=== PATIENT | female | born 1985 | race Caucasian/White ===

== ENCOUNTER 2017-06-18 15:34 | Emergency (ER) | payer BC ==
[2017-06-18 16:07] VITALS: BP 117/76
[2017-06-18] MEDS ORDERED: Ibuprofen 400 MG Tab PO ONE (16:20)
[2017-06-18] MEDS ORDERED: Diphtheria,Pertussis(Acell),Tetanus Vaccine 0.5 ML Syringe IM ONE (16:21)
--- NOTE | 2017-06-18 16:24 | EDM.PDOC ---
ED HPI GENERAL MEDICAL PROBLEM - General Chief Complaint: Upper Extremity Injury/Pain Stated Complaint: RT ARM HURTS Time Seen by Provider: 06/18/17 16:02 Source of Information: Reports: Patient History Limitations: Reports: No Limitations - History of Present Illness INITIAL COMMENTS - FREE TEXT/NARRATIVE: HISTORY AND PHYSICAL: History of present illness: [31-year-old female presents to the emergency department after awakening this morning with a area of swelling on her right forearm with mild bruising in the center of the swollen area. Patient did not suffer any trauma. She is able to use her elbow and wrist normally. She has no fevers chills sweats or shaking chills. She was asymptomatic no findings last night. Patient thinks she may have been bitten by a spider.] Review of systems: As per history of present illness and below otherwise all systems reviewed and negative. Past medical history: As per history of present illness and as reviewed below otherwise noncontributory. Surgical history: As per history of present illness and as reviewed below otherwise noncontributory. Social history: No reported history of drug or alcohol abuse. Family history: As per history of present illness and as reviewed below otherwise noncontributory. Physical exam: Well-appearing patient distress mild soft tissue swelling right forearm in local area with mild ecchymosis centrally consistent with suspected brown recluse spider bite. No fluctuance or crepitus. No erythema. Soft compartments normal use of wrist and elbow. HEENT: Atraumatic, normocephalic, pupils reactive, negative for conjunctival pallor or scleral icterus, mucous membranes moist, throat clear, neck supple, nontender, trachea midline. Lungs: Clear to auscultation, breath sounds equal bilaterally, chest nontender. Heart: S1S2, regular, negative for clicks, rubs, or JVD. Abdomen: Soft, nondistended, nontender. Negative for masses or hepatosplenomegaly. Negative for costovertebral tenderness. Pelvis: Stable nontender. Genitourinary: Deferred. Rectal: Deferred. Extremities: Atraumatic, negative for cords or calf pain. Neurovascular unremarkable. Neuro: Awake, alert, oriented. Cranial nerves grossly unremarkable. Cerebellum unremarkable. Motor and sensory unremarkable throughout. Exam nonfocal. Diagnostics: [] Therapeutics: [] Impression: [Spider bite Tetanus administered at this visit] Plan: [Signs and symptoms consistent with suspected brown recluse spider bite with local reaction and mild ecchymosis. Soft compartments. No evidence of cellulitis. Tetanus updated. No further workup or treatment indicated. Patient aware of potentially expect as far as evolution of skin lesion. She will take Motrin Tylenol as needed for discomfort and follow-up with her doctor. Patient agrees outpatient follow-up and strict return precautions given] Definitive disposition and diagnosis as appropriate pending reevaluation and review of above. right forearm Pain Score (Numeric/FACES): 3 - Related Data Allergies Allergy/AdvReac Type Severity Reaction Status Date / Time No Known Allergies Allergy Verified 06/18/17 16:03 Home Meds: Home Meds Neomycin León/Bacitrac Zn/Poly [Antibiotic Ointment] 06/18/17 [History] Past Medical History - Past Health History Medical/Surgical History: Denies Medical/Surgical History [employer] History: Reports: - Infectious Disease History Infectious Disease History: Reports: Chicken Pox - Past Surgical History Female Surgical History: Reports: D&C Social & Family History - Family History Family Medical History: Noncontributory - Tobacco Use Smoking Status *Q: Current Some Day Smoker Years of Tobacco use: 5 Packs/Tins Daily: 1 - Caffeine Use Caffeine Use: Reports: None - Recreational Drug Use Recreational Drug Use: No Review of Systems - Review of Systems Review Of Systems: See Below (History of present illness) ED EXAM, GENERAL - Physical Exam Exam: See Below (History of present illness) Course - Vital Signs Last Recorded V/S: Last Vital Signs Temp 37.2 C 06/18/17 16:04 Pulse 89 06/18/17 16:04 Resp 18 06/18/17 16:04 BP 117/76 06/18/17 16:04 Pulse Ox 98 06/18/17 16:04 - Orders/Labs/Meds Meds: Medications Discontinued Medications Generic Name Dose Route Start Last Admin Trade Name Freq PRN Reason Stop Dose Admin Diphtheria/Tetanus/Acell Pertussis 0.5 ml 06/18/17 16:21 06/18/17 16:30 Adacel IM 06/18/17 16:22 0.5 ml .ONCE ONE Administration Ibuprofen 400 mg 06/18/17 16:20 06/18/17 16:31 Motrin PO 06/18/17 16:21 400 mg ONETIME ONE Administration Departure - Departure Time of Disposition: 16:22 Disposition: Home, Self-Care 01 Condition: Good Clinical Impression: Spider bite, Tetanus-diphtheria vaccination administered at current visit - Discharge Information Instructions: Spider Bite, [id number], VIS, Tetanus, Diphtheria, and Pertussis (Tdap) - CDC Referrals: PCP,None [Primary Care Provider] - Forms: ED Department Discharge Additional Instructions: It appears that you have a spider bite area your tetanus has been updated. This also includes pertussis or whooping cough coverage. Take ibuprofen 600 mg every 6 hours as needed for soreness. Apply an ice pack as needed as well. He can also take Tylenol if necessary. The aware that that mildly black and blue area may become darker black and blue and is typical for her to take weeks to resolve. Follow-up with your and return immediately for drainage of pus or any evolving signs of infection especially fevers in the setting of worsening skin lesion.
[2017-06-18] MEDS ORDERED: cefTRIAXone 2,000 MG, Lidocaine 1% 2.1 ML IM ONE ×2 (16:29)
== END 2017-06-18 16:37 | disposition home or self-care (01) ==
LOC: MW.ED 15:34
DX: T63.441A Toxic effect of venom of bees, accidental (unintentional), initial encounter (principal); Z23 Encounter for immunization; F17.210 Nicotine dependence, cigarettes, uncomplicated
CPT/HCPCS: 90471; 90715; 99282; A9270

== ENCOUNTER 2017-10-05 10:13 | Observation (INO) | payer BC ==
[2017-10-05] MEDS ORDERED: Ondansetron 4 MG/2 ML SDV IVPUSH ONE (10:35)
[2017-10-05] MEDS ORDERED: Sodium Chloride 0.9% 1,000 ML IV ONE ×3 (10:35→14:50)
--- NOTE | 2017-10-05 10:40 | EDM.PDOC ---
ED HPI GENERAL MEDICAL PROBLEM - General Chief Complaint: [employer] Problem Stated Complaint: fever Time Seen by Provider: 10/05/17 10:36 Source of Information: Reports: Patient History Limitations: Reports: No Limitations - History of Present Illness INITIAL COMMENTS - FREE TEXT/NARRATIVE: HISTORY AND PHYSICAL: History of present illness: Shouldn't is a 32-year-old female who presents to the emergency room today with complaints of right lower quadrant pain. Patient is approximately 9 weeks with her last menstrual period being August 03, 2017. She has had a confirmed IUP by a [employer] in Dr. Pallavi Lanier. Patient reports that last night she started having body aches, fever, nausea, vomiting and mild right lower quadrant pain. This morning she started to feel low abdominal cramping with more intense right lower quadrant pain. States she had a normal bowel movement last night, denies constipation. Denies any chest pain, shortness of breath, change in vision, headache. 2, para 0 - had a miscarriage November 2015 at 6 weeks gestation. No recent sexual activity Our previous hospital records show she is O-Negative Review of systems: As per history of present illness and below otherwise all systems reviewed and negative. Past medical history: As per history of present illness and as reviewed below otherwise noncontributory. Surgical history: As per history of present illness and as reviewed below otherwise noncontributory. Social history: No reported history of drug or alcohol abuse. Family history: As per history of present illness and as reviewed below otherwise noncontributory. Physical exam: Gen.: Well-developed and well-nourished 32-year-old female. Appears nontoxic. Alert and oriented. HEENT: Atraumatic, normocephalic, pupils reactive, negative for conjunctival pallor or scleral icterus, mucous membranes moist, throat clear, neck supple, nontender, trachea midline. Lungs: Clear to auscultation, breath sounds equal bilaterally, chest nontender. Heart: S1S2, regular rate and rhythm Abdomen: Soft, nondistended, right lower quadrant tenderness -no rebound tenderness. Negative for masses or hepatosplenomegaly. Negative for costovertebral tenderness. Pelvis: Stable nontender. Genitourinary: Deferred. Rectal: Deferred. Extremities: Atraumatic, moves all extremities per self, negative for cords or calf pain. Neurovascular unremarkable. Neuro: Awake, alert, oriented. Cranial nerves II through XII unremarkable. Cerebellum unremarkable. Motor and sensory unremarkable throughout. Exam nonfocal. 1310- Dr. Padilla was consulted at this time. I did talk to him over the phone about this case at 1310, he reports that he will come in and see the patient. Patient is aware of this and is agreeable. Will continue to monitor. 1410- is here to evaluate the patient. Nursing staff assisted him with performing a pelvic exam. He reviewed the labs and to sound report prior to visiting with the patient. Dr. Padilla instructed the patient signs and symptoms to monitor for which would require her to come back. He wants her to be discharged to home and she may use Tylenol [id number] for pain management. He would like her to follow up with her primary [employer] in [place] or he would be happy to see her in his clinic next week. Strict pelvic rest. 1415- Dr. Coronado was consulted on this case for possible observation admission. He requested that the general surgeon be called. I went in to reevaluate the patient prior to calling the on-call surgeon. Inform the patient that we would like to keep her overnight to monitor her lab work and blood pressure/ temperature; she declined. She reports she feels comfortable going home after speaking with Dr. Padilla. We discussed the risks versus benefits. She still would like to return home and watch her symptoms there. 1430-discharge vitals are being done, blood pressure is 91/51. Went in to rediscuss admission with patient. She is agreeable to staying overnight. He still has right lower quadrant tenderness with palpation. Dr. Apple is involved in this case, assisting in getting patient admitted. 1510- Dr. Joyce here to see patient. In with patient at this time. Diagnostics: CBC, CMP, UA, quantitative hCG, AB/Rh, OB ultrasound/limited abdominal ultrasound Therapeutics: IV fluid, Zofran Impression: First trimester Threatened miscarriage Fever Plan: 1. Active Cliff and Dr. Christensen have agreed to accept this patient for overnight observation. Patient will be admitted to [facility] floor Definitive disposition and diagnosis as appropriate pending reevaluation and review of above. Duration: Hour(s): Location: Reports: Abdomen Quality: Reports: Ache, Other (Cramping) Associated Symptoms: Reports: Fever/Chills, Nausea/Vomiting, Other (Body aches) . Denies: Chest Pain, Cough, Headaches, Loss of Appetite right lower quad Pain Score (Numeric/FACES): 9 - Related Data Allergies Allergy/AdvReac Type Severity Reaction Status Date / Time No Known Allergies Allergy Verified 10/05/17 10:21 Home Meds: Home Meds Docosahexanoic Acid [ Dha] 200 mg PO DAILY 10/05/17 [History] Pyridoxine HCl [Vitamin B-6] 1 tab PO DAILY 10/05/17 [History] Past Medical History - Past Health History Medical/Surgical History: Denies Medical/Surgical History [employer] History: Reports: - Infectious Disease History Infectious Disease History: Reports: Chicken Pox - Past Surgical History GI Surgical History: Reports: Cholecystectomy Female Surgical History: Reports: D&C Social & Family History - Family History Family Medical History: Noncontributory - Tobacco Use Smoking Status *Q: Current Some Day Smoker Years of Tobacco use: 8 Packs/Tins Daily: 0.5 - Caffeine Use Caffeine Use: Reports: Coffee - Recreational Drug Use Recreational Drug Use: No ED ROS GENERAL - Review of Systems Review Of Systems: ROS reveals no pertinent complaints other than HPI. ED EXAM - Physical Exam Exam: See Below (See dictation) Course - Vital Signs Last Recorded V/S: Last Vital Signs Temp 37.1 C 10/06/17 08:00 Pulse 68 10/06/17 07:00 Resp 20 10/06/17 10:00 BP 115/64 10/06/17 10:00 Pulse Ox 97 10/06/17 10:00 - Orders/Labs/Meds Orders: Active Orders 24 hr Category Date Time Status Admission Diagnosis [ADT] Stat ADT 10/05/17 15:30 Ordered Admission Status [Patient Status] [ADT] Stat ADT 10/05/17 15:31 Active Notify Provider Consults [RC] ASDIRECTED Care 10/05/17 13:05 Active Notify Provider Consults [RC] ASDIRECTED Care 10/05/17 15:25 Active Consult to Physician [CONS] Stat Cons 10/05/17 13:04 Active Consult to Physician [CONS] Stat Cons 10/05/17 15:25 Active Abdomen Ltd [US] Stat Exams 10/05/17 10:35 Taken OB Transvaginal [US] Stat Exams 10/05/17 10:35 Taken CULTURE BLOOD [BC] Stat Lab 10/05/17 13:04 Received CULTURE BLOOD [BC] Stat Lab 10/05/17 13:16 Received Blood Culture x2 Reflex Set [OM.PC] Stat Oth 10/05/17 12:59 Ordered Medication Orders Acetaminophen (Tylenol) 650 mg PO Q4H PRN PRN Reason: Pain (Mild 1-3)/fever Last Admin: 10/05/17 18:14 Dose: 650 mg Sodium Chloride (Normal Saline) 1,000 mls @ 125 mls/hr IV ASDIRECTED JESS Last Admin: 10/06/17 02:38 Dose: 125 mls/hr Infusion: 10/06/17 02:15 Dose: 125 mls/hr Admin: 10/05/17 18:15 Dose: 125 mls/hr Piperacillin Sod/Tazobactam (Sod 3.375 gm/ Sodium Chloride) 50 mls @ 100 mls/ hr IV Q8H [facility] Last Admin: 10/06/17 07:47 Dose: 100 mls/hr Infusion: 10/06/17 00:36 Dose: 100 mls/hr Admin: 10/06/17 00:06 Dose: 100 mls/hr Ondansetron HCl (Zofran) 4 mg IVPUSH Q4H PRN PRN Reason: Nausea Oxycodone HCl (Oxycodone) 5 mg PO Q4H PRN PRN Reason: Pain Last Admin: 10/06/17 02:54 Dose: 5 mg Labs: Laboratory Tests 10/05/17 10/05/17 10/05/17 Range/Units 10:43 10:43 11:15 WBC 8.88 (4.0-11.0) K/uL RBC 4.74 (4.30-5.90) M/uL Hgb 14.9 (12.0-16.0) g/dL Hct 44.1 (36.0-46.0) % MCV 93.0 (80.0-98.0) fL MCH 31.4 (27.0-32.0) pg MCHC 33.8 (31.0-37.0) g/dL RDW Std Deviation 41.2 (28.0-62.0) fl RDW Coeff of Sandra 12 (11.0-15.0) % Plt Count 240 (150-400) K/uL MPV 10.00 (7.40-12.00) fL Neut % (Auto) 72.9 (48.0-80.0) % Lymph % (Auto) 17.6 (16.0-40.0) % Frontier % (Auto) 8.1 (0.0-15.0) % Eos % (Auto) 1.2 (0.0-7.0) % Baso % (Auto) 0.2 (0.0-1.5) % Neut # (Auto) 6.5 H (1.4-5.7) K/uL Lymph # (Auto) 1.6 (0.6-2.4) K/uL Frontier # (Auto) 0.7 (0.0-0.8) K/uL Eos # (Auto) 0.1 (0.0-0.7) K/uL Baso # (Auto) 0.0 (0.0-0.1) K/uL Nucleated RBC % 0.0 /100WBC Nucleated RBCs # 0 K/uL Lactate (0.20-2.00) mmol/L Sodium 138 (136-146) mmol/L Potassium 3.9 (3.5-5.1) mmol/L Chloride 106 (98-110) mmol/L Carbon Dioxide 22 (21-31) mmol/L BUN 12 (6.0-23.0) mg/dL Creatinine 0.6 (0.6-1.5) mg/dL Est Cr Clr Drug Dosing 112.77 mL/min Estimated GFR (MDRD) > 60.0 ml/min Glucose 74 (60-110) mg/dL Calcium 9.8 (8.8-10.8) mg/dL Total Bilirubin 0.8 (0.1-1.5) mg/dL AST 18 (5-40) IU/L ALT 19 (8-54) IU/L Alkaline Phosphatase 58 (40-150) Total Protein 7.2 (6.0-8.0) g/dL Albumin 4.2 (3.5-5.0) g/dL Globulin 3.0 (2.0-3.5) g/dL Albumin/Globulin Ratio 1.4 (1.3-2.8) HCG, Quant 264886.7 mIU/mL Urine Color YELLOW Urine Appearance CLEAR Urine pH 7.5 (5.0-8.0) Ur Specific [place] 1.010 (1.001-1.035) Urine Protein NEGATIVE (NEGATIVE) mg/dL Urine Glucose (UA) NEGATIVE (NEGATIVE) mg/dL Urine Ketones NEGATIVE (NEGATIVE) mg/dL Urine Occult Blood NEGATIVE (NEGATIVE) Urine Nitrite NEGATIVE (NEGATIVE) Urine Bilirubin NEGATIVE (NEGATIVE) Urine Urobilinogen 0.2 (<2.0) EU/dL Ur Leukocyte Esterase NEGATIVE (NEGATIVE) Urine RBC NONE SEEN (0-2/HPF) Urine WBC 1-3 (0-5/HPF) Ur Epithelial Cells FEW (NONE-FEW) Amorphous Sediment NOT SEEN (NEGATIVE) Urine Bacteria FEW (NEGATIVE) Urine Mucus NOT SEEN (NONE-MOD) 10/05/17 Range/Units 13:10 WBC (4.0-11.0) K/uL RBC (4.30-5.90) M/uL Hgb (12.0-16.0) g/dL Hct (36.0-46.0) % MCV (80.0-98.0) fL MCH (27.0-32.0) pg MCHC (31.0-37.0) g/dL RDW Std Deviation (28.0-62.0) fl RDW Coeff of Sandra (11.0-15.0) % Plt Count (150-400) K/uL MPV (7.40-12.00) fL Neut % (Auto) (48.0-80.0) % Lymph % (Auto) (16.0-40.0) % Frontier % (Auto) (0.0-15.0) % Eos % (Auto) (0.0-7.0) % Baso % (Auto) (0.0-1.5) % Neut # (Auto) (1.4-5.7) K/uL Lymph # (Auto) (0.6-2.4) K/uL Frontier # (Auto) (0.0-0.8) K/uL Eos # (Auto) (0.0-0.7) K/uL Baso # (Auto) (0.0-0.1) K/uL Nucleated RBC % /100WBC Nucleated RBCs # K/uL Lactate 0.7 (0.20-2.00) mmol/L Sodium (136-146) mmol/L Potassium (3.5-5.1) mmol/L Chloride (98-110) mmol/L Carbon Dioxide (21-31) mmol/L BUN (6.0-23.0) mg/dL Creatinine (0.6-1.5) mg/dL Est Cr Clr Drug Dosing mL/min Estimated GFR (MDRD) ml/min Glucose (60-110) mg/dL Calcium (8.8-10.8) mg/dL Total Bilirubin (0.1-1.5) mg/dL AST (5-40) IU/L ALT (8-54) IU/L Alkaline Phosphatase (40-150) Total Protein (6.0-8.0) g/dL Albumin (3.5-5.0) g/dL Globulin (2.0-3.5) g/dL Albumin/Globulin Ratio (1.3-2.8) HCG, Quant mIU/mL Urine Color Urine Appearance Urine pH (5.0-8.0) Ur Specific [place] (1.001-1.035) Urine Protein (NEGATIVE) mg/dL Urine Glucose (UA) (NEGATIVE) mg/dL Urine Ketones (NEGATIVE) mg/dL Urine Occult Blood (NEGATIVE) Urine Nitrite (NEGATIVE) Urine Bilirubin (NEGATIVE) Urine Urobilinogen (<2.0) EU/dL Ur Leukocyte Esterase (NEGATIVE) Urine RBC (0-2/HPF) Urine WBC (0-5/HPF) Ur Epithelial Cells (NONE-FEW) Amorphous Sediment (NEGATIVE) Urine Bacteria (NEGATIVE) Urine Mucus (NONE-MOD) Meds: Medications Generic Name Dose Route Start Last Admin Trade Name Freq PRN Reason Stop Dose Admin Acetaminophen 650 mg 10/05/17 18:01 10/05/17 18:14 Tylenol PO 650 mg Q4H PRN Administration Pain (Mild 1-3)/fever Sodium Chloride 1,000 mls @ 125 mls/hr 10/05/17 18:15 10/06/17 02:38 Normal Saline IV 125 mls/hr ASDIRECTED JESS Administration Piperacillin Sod/Tazobactam 50 mls @ 100 mls/hr 10/06/17 00:00 10/06/17 07:47 Sod 3.375 gm/ Sodium Chloride IV 100 mls/hr Q8H JESS Administration Ondansetron HCl 4 mg 10/05/17 18:01 Zofran IVPUSH Q4H PRN Nausea Oxycodone HCl 5 mg 10/06/17 02:42 10/06/17 02:54 Oxycodone PO 5 mg Q4H PRN Administration Pain Discontinued Medications Generic Name Dose Route Start Last Admin Trade Name Freq PRN Reason Stop Dose Admin Acetaminophen 650 mg 10/05/17 10:51 10/05/17 11:01 Tylenol PO 10/05/17 10:52 650 mg NOW ONE Administration Sodium Chloride 1,000 mls @ 999 mls/hr 10/05/17 10:35 10/05/17 10:48 Normal Saline IV 10/05/17 11:35 999 mls/hr STAT ONE Administration Sodium Chloride 1,000 mls @ 999 mls/hr 10/05/17 12:50 10/05/17 12:57 Normal Saline IV 10/05/17 13:50 999 mls/hr STAT ONE Administration Piperacillin Sod/Tazobactam 50 mls @ 100 mls/hr 10/05/17 14:48 10/05/17 15:12 Sod 3.375 gm/ Sodium Chloride IV 10/05/17 15:17 100 mls/hr ONETIME ONE Administration Sodium Chloride 1,000 mls @ 999 mls/hr 10/05/17 14:50 10/05/17 15:11 Normal Saline IV 10/05/17 15:50 999 mls/hr STAT ONE Administration Ondansetron HCl 4 mg 10/05/17 10:35 10/05/17 11:01 Zofran IVPUSH 10/05/17 10:36 4 mg ONETIME ONE Administration Oxycodone HCl 5 mg 10/05/17 21:56 10/05/17 22:15 Oxycodone PO 5 mg Q6H PRN Administration Pain Departure - Departure Time of Disposition: 10:11 Disposition: Refer to Observation Clinical Impression: First trimester Fever Qualifiers: Fever type: unspecified Qualified Code(s): R50.9 - Fever, unspecified - Discharge Information - My Orders Last 24 Hours: My Active Orders 10/05/17 10:35 Abdomen Ltd [US] Stat OB Transvaginal [US] Stat 10/05/17 12:59 Blood Culture x2 Reflex Set [OM.PC] Stat 10/05/17 13:04 Consult to Physician [CONS] Stat CULTURE BLOOD [BC] Stat 10/05/17 13:05 Notify Provider Consults [RC] ASDIRECTED 10/05/17 13:16 CULTURE BLOOD [BC] Stat 10/05/17 15:25 Notify Provider Consults [RC] ASDIRECTED Consult to Physician [CONS] Stat - Assessment/Plan Last 24 Hours: My Active Orders 10/05/17 10:35 Abdomen Ltd [US] Stat OB Transvaginal [US] Stat 10/05/17 12:59 Blood Culture x2 Reflex Set [OM.PC] Stat 10/05/17 13:04 Consult to Physician [CONS] Stat CULTURE BLOOD [BC] Stat 10/05/17 13:05 Notify Provider Consults [RC] ASDIRECTED 10/05/17 13:16 CULTURE BLOOD [BC] Stat 10/05/17 15:25 Notify Provider Consults [RC] ASDIRECTED Consult to Physician [CONS] Stat
[2017-10-05] MEDS ORDERED: Acetaminophen 325 MG Tab PO ONE (10:51)
[2017-10-05 11:11] LABS: CHLORIDE,CL 106 mmol/L (98-110); SODIUM,NA 138 mmol/L (136-146)
[2017-10-05] MEDS ORDERED: Piperacillin/Tazobactam 3.375 GM in Sodium Chloride 0.9% 50 ML IV ONE (14:48)
[2017-10-05] MEDS ORDERED: Ondansetron 4 MG/2 ML SDV IVPUSH PRN (18:01)
[2017-10-05] MEDS ORDERED: Acetaminophen 325 MG Tab PO PRN (18:01)
--- NOTE | 2017-10-05 18:10 | PCM.HP ---
H&P History of Present Illness - History of Present Illness Initial Comments - Free Text/Narative: 32 yo female who is 9 weeks who presents with several day history of fevers, abdominal pain and myalgias. Patient does report stapping right lower quadrant pain. She reports nausea and sinsus congestion. She denies any shortness of breath, cough, or diarrhea. right lower quad Pain Score (Numeric/FACES): 9 - Related Data Allergies/Adverse Reactions: Allergies Allergy/AdvReac Type Severity Reaction Status Date / Time No Known Allergies Allergy Verified 10/05/17 10:21 Home Medications: Home Meds Docosahexanoic Acid [ Dha] 200 mg PO DAILY 10/05/17 [History] Pyridoxine HCl [Vitamin B-6] 1 tab PO DAILY 10/05/17 [History] Past Medical History - Past Health History Medical/Surgical History: Denies Medical/Surgical History [employer] History: Reports: - Infectious Disease History Infectious Disease History: Reports: Chicken Pox - Past Surgical History GI Surgical History: Reports: Cholecystectomy Female Surgical History: Reports: D&C Social & Family History - Family History Family Medical History: Noncontributory - Tobacco Use Smoking Status *Q: Current Some Day Smoker Years of Tobacco use: 8 Packs/Tins Daily: 0.5 - Caffeine Use Caffeine Use: Reports: Coffee - Recreational Drug Use Recreational Drug Use: No H&P Review of Systems - Review of Systems: Review Of Systems: ROS reveals no pertinent complaints other than HPI. Exam - Exam Exam: See Below - Vital Signs Vital Signs: Last Vital Signs Temp 37.6 C 10/05/17 16:20 Pulse 71 10/05/17 13:55 Resp 11 L 10/05/17 16:20 BP 131/73 10/05/17 16:20 Pulse Ox 100 10/05/17 16:20 Weight: 53.07 kg - Exam General: Alert, Oriented, 4 HEENT: Mucosa Moist & [place], Posterior Pharynx Clear Neck: Supple Lungs: Clear to Auscultation, Normal Respiratory Effort Cardiovascular: Regular Rate, Regular Rhythm GI/Abdominal Exam: Soft, Tender (right lower quadrant). No: Distended, Guarding , Rigid, Rebound Extremities: Non-Tender, No Pedal Edema Skin: Warm, Dry, Intact - Patient Data Result Diagrams: 10/06/17 06:02 10/06/17 06:02 *Q Meaningful Use (ADM) - VTE *Q VTE Criteria *Q: - Stroke *Q Stroke Criteria *Q: - AMI *Q AMI Criteria *Q: Problem List Initiated/Reviewed/Updated: Yes Orders Last 24hrs: Active Orders 24 hr Category Date Time Status Antiembolic Devices [RC] PER UNIT ROUTINE Care 10/05/17 18:02 Ordered Oxygen Therapy [RC] PRN Care 10/05/17 18:01 Ordered VTE/DVT Education [RC] PER UNIT ROUTINE Care 10/05/17 18:01 Ordered Vital Signs [RC] Q4H Care 10/05/17 18:01 Ordered BASIC METABOLIC PANEL,BMP [CHEM] AM Lab 10/06/17 05:11 Ordered CBC WITH AUTO DIFF [HEME] AM Lab 10/06/17 05:11 Ordered Acetaminophen [Tylenol] Med 10/05/17 18:01 Ordered 650 mg PO Q4H PRN Ondansetron [Zofran] Med 10/05/17 18:01 Ordered 4 mg IVPUSH Q4H PRN Sodium Chloride 0.9% @ 125 MLS/HR (1000ml) Med 10/05/17 18:15 Ordered Sodium Chloride 0.9% [Normal Saline] 1,000 ml IV ASDIRECTED Sequential Compression Device [OM.PC] Per Unit Routine Oth 10/05/17 18:01 Ordered Resuscitation Status Routine Resus Stat 10/05/17 18:01 Ordered Medication Orders Acetaminophen (Tylenol) 650 mg PO Q4H PRN PRN Reason: Pain (Mild 1-3)/fever Sodium Chloride (Normal Saline) 1,000 mls @ 125 mls/hr IV ASDIRECTED JESS Ondansetron HCl (Zofran) 4 mg IVPUSH Q4H PRN PRN Reason: Nausea Assessment/Plan Comment:: 32 yo female 9 weeks who is admitted for fever and abdominal pain. Abdominal ultrasound was benign. Dr. Joyce and Dr. Padilla have been consulted. Abdominal exam does not appear surgical. Hazel has received zosyn and IV fluids in the ED. Her blood pressure has improved . We will continue to monitor.
--- NOTE | 2017-10-05 18:13 | PCM.CONS ---
H&P History of Present Illness - General Date of Service: 10/05/17 Admit Problem/Dx: RLQ pain Source of Information: Patient History Limitations: Reports: No Limitations - History of Present Illness Initial Comments - Free Text/Narative: Patient is a 32 year old female who is 9 weeks . She presents to the ED with RLQ pain that woke her from sleep last night. She has morning sickness and vomited this morning. The pain was not improving so she presented to the ED. She states that nothing makes the pain better or worse. She denies any fever, chills. She is hungry and asking to eat. She has been urinating throughout the night and has had no dysuria. This is her first . She was evaluated by the [employer] who felt her pain was not related to her . An US was performed that did not show the appendix. Her BP on arrival was in the 90s/50s. HR was normal. She was given 2L of NS. Her WBC was normal and there was no left shift. Her lactate was normal. All of her other labs were within normal limits. right lower quad Pain Score (Numeric/FACES): 9 - Related Data Allergies/Adverse Reactions: Allergies Allergy/AdvReac Type Severity Reaction Status Date / Time No Known Allergies Allergy Verified 10/05/17 10:21 Home Medications: Home Meds Docosahexanoic Acid [ Dha] 200 mg PO DAILY 10/05/17 [History] Pyridoxine HCl [Vitamin B-6] 1 tab PO DAILY 10/05/17 [History] Past Medical History - Past Health History Medical/Surgical History: Denies Medical/Surgical History [employer] History: Reports: - Infectious Disease History Infectious Disease History: Reports: Chicken Pox - Past Surgical History GI Surgical History: Reports: Cholecystectomy Female Surgical History: Reports: D&C Social & Family History - Family History Family Medical History: Noncontributory - Tobacco Use Smoking Status *Q: Current Some Day Smoker Years of Tobacco use: 8 Packs/Tins Daily: 0.5 - Caffeine Use Caffeine Use: Reports: Coffee - Recreational Drug Use Recreational Drug Use: No H&P Review of Systems - Review of Systems: Review Of Systems: ROS reveals no pertinent complaints other than HPI. Exam - Exam Exam: See Below - Vital Signs Vital Signs: Last Vital Signs Temp 37.6 C 10/05/17 16:20 Pulse 71 10/05/17 13:55 Resp 11 L 10/05/17 16:20 BP 131/73 10/05/17 16:20 Pulse Ox 100 10/05/17 16:20 Weight: 53.07 kg - Exam General: Alert, Oriented Lungs: Normal Respiratory Effort Cardiovascular: Regular Rate GI/Abdominal Exam: Normal Bowel Sounds, Soft, Non-Tender, No Distention, No Mass , Other (No rosvigs or psoas sign). No: Guarding, Rigid, Rebound, Tender - Patient Data Result Diagrams: 10/05/17 10:43 10/05/17 10:43 Consult PN Assessment/Plan Procedures: Procedures BLOOD TYPING SEROLOGIC ABO (11/22/16) BLOOD TYPING SEROLOGIC RH(D) (11/22/16) CHORIONIC GONADOTROPIN TEST (11/22/16) COMPLETE CBC W/AUTO DIFF WBC (11/22/16) EMERGENCY DEPT VISIT (06/18/17) EMERGENCY DEPT VISIT (11/22/16) IMMUNIZATION ADMIN (06/18/17) OB US < 14 WKS SINGLE FETUS (11/22/16) RBC ANTIBODY SCREEN (11/22/16) ROUTINE VENIPUNCTURE (11/22/16) TDAP VACCINE 7 YRS/> IM (06/18/17) THER/PROPH/DIAG INJ SC/IM (11/22/16) URINALYSIS AUTO W/SCOPE (11/22/16) Problem List Initiated/Reviewed/Updated: Yes Plan: The patient had no physical exam findings (for me) or laboratory findings of appendicitis other than subjective RLQ pain. Her low BP may have been from dehydration secondary to her nausea and vomiting this am. Her US was non- diagnostic. She was admitted to the floor and her BP has improved. Given my low clinical suspicion, I do not think she needs a CT or exploratory laparoscopy with appendectomy at this time. Both of these interventions carry risk to her developing fetus in the first trimester. I would keep her NPO, continue her resucitation, and I will watch her overnight. -If her pain worsens and she starts having tenderness on exam in the RLQ or labaratory findings suggesting an infection, I will take out her appendix. -If her pain stays the same but her labs stay stable, she should be transfered to another facility for an MRI. Unfortunately we have no way to get an MRI over the weekends at our facility. If an MRI could save her from a surgery or radiation it would be beneficial to her and the baby. -If her pain improves and her labs and VS stay normal she can be d/c home with follow up with her OB. Will continue to follow her during her stay.
[2017-10-05] MEDS: Sodium Chloride 0.9% 1,000 ML IV SCH (18:15)
[2017-10-05] MEDS ORDERED: oxyCODONE 5 MG Tab PO PRN (21:56)
--- NOTE | 2017-10-05 22:15 | PCM.SN ---
- Free Text/Narrative Note: Follow up abdominal exams at 7pm and 10pm were normal. Patient feels her pain is less intense. Vitals are stable. Continue NPO, IVF, IV antibiotics and ok to have po oxycodone and tylenol prn pain. Will see in am. Repeat evening labs stable.
[2017-10-06] MEDS: Piperacillin/Tazobactam 3.375 GM in Sodium Chloride 0.9% 50 ML IV SCH ×2 (00:06→07:47)
[2017-10-06] MEDS: Sodium Chloride 0.9% 1,000 ML IV SCH (02:38)
[2017-10-06] MEDS ORDERED: oxyCODONE 5 MG Tab PO PRN (02:42)
--- NOTE | 2017-10-06 03:16 | CONS ---
DATE OF CONSULTATION: DATE OF : 1985 PRIMARY CARE PHYSICIAN: None PCP Ms. Spencer is 32-year-old patient. She is para 0-0-1-0. She had 1 spontaneous miscarriage before. She is currently 9 weeks' . She is seen 1 visit in this in [place], but she relocated to this area and she is transferring her record to this area. However, the patient presented to the emergency room because of nausea and vomiting and she found to have a temperature. No bleeding, no discharge. She had some sort of symptom of upper respiratory tract infection, but it is not severe. I was consulted for evaluation because of the her 1 episode of fever and to rule out any other abnormality. For the purpose of this consultation, I reviewed her lab work, which shows that her white count is 8. Her H and H are normal. She had an ultrasound, which shows intrauterine with cardiac activity and a gestation consistent with 9 weeks. No adnexal mass. No other abnormality. Today on examination, lower abdominal examination essentially is normal. No tenderness. No rebound tenderness. Pelvic examination and external vulva are normal. Speculum examination shows cervix without closed. No bleeding. There is no blood. Bimanual examination of the uterus is 9-10 weeks, nontender on manipulation. ASSESSMENT: Intrauterine 9 weeks; probably upper respiratory tract infection, 1 spike of fever with a normal white count. No pelvic physical examination indicating any problem with the . I reassured the patient and offered her to have followed in the clinic in 1 week or if she prefer she can go back to her doctor in [place] in 1 week or accordingly. JESSICA / RAJNI /[id number]
[2017-10-06 06:32] LABS: CHLORIDE,CL 112 mmol/L (98-110); SODIUM,NA 136 mmol/L (136-146)
--- NOTE | 2017-10-06 10:01 | PCM.PN ---
- General Info Date of Service: 10/06/17 Subjective Update: I performed serial abdominal exams on the patient last evening and throughout the night. Her RLQ crampy pain improved. I gave her po oxycodone and it went away completely. This morning she was very hungry. She had no leukocytosis and her abdominal exam was benign. I gave her regular diet. She ate this and has been stable since. She denies any nausea or vomiting. Functional Status: Reports: Pain Controlled, Tolerating Diet, Ambulating, Urinating - Review of Systems General: Reports: No Symptoms Gastrointestinal: Reports: No Symptoms - Patient Data Vitals - Most Recent: Last Vital Signs Temp 37.1 C 10/06/17 08:00 Pulse 68 10/06/17 07:00 Resp 13 10/06/17 09:00 BP 117/70 10/06/17 09:00 Pulse Ox 97 10/06/17 09:00 Weight - Most Recent: 54.9 kg I&O - Last 24 Hours: Intake & Output 10/05/17 10/06/17 10/06/17 22:59 06:59 14:59 Intake Total 3050 1794 50 Output Total 1400 Balance 3050 394 50 Lab Results Last 24 Hours: Laboratory Results - last 24 hr 10/05/17 10/06/17 10/06/17 Range/Units 18:56 06:02 06:02 WBC 8.34 7.15 (4.0-11.0) K/uL RBC 3.73 L 3.62 L (4.30-5.90) M/uL Hgb 11.8 L 11.4 L (12.0-16.0) g/dL Hct 34.5 L 33.8 L (36.0-46.0) % MCV 92.5 93.4 (80.0-98.0) fL MCH 31.6 31.5 (27.0-32.0) pg MCHC 34.2 33.7 (31.0-37.0) g/dL RDW Std Deviation 41.3 41.5 (28.0-62.0) fl RDW Coeff of Sandra 12 12 (11.0-15.0) % Plt Count 185 185 (150-400) K/uL MPV 9.40 9.70 (7.40-12.00) fL Neut % (Auto) 69.0 69.4 (48.0-80.0) % Lymph % (Auto) 21.6 22.1 (16.0-40.0) % [place] % (Auto) 7.9 6.6 (0.0-15.0) % Eos % (Auto) 1.1 1.5 (0.0-7.0) % Baso % (Auto) 0.4 0.4 (0.0-1.5) % Neut # (Auto) 5.8 H 5.0 (1.4-5.7) K/uL Lymph # (Auto) 1.8 1.6 (0.6-2.4) K/uL [place] # (Auto) 0.7 0.5 (0.0-0.8) K/uL Eos # (Auto) 0.1 0.1 (0.0-0.7) K/uL Baso # (Auto) 0.0 0.0 (0.0-0.1) K/uL Nucleated RBC % 0.0 0.0 /100WBC Nucleated RBCs # 0 0 K/uL Sodium 136 (136-146) mmol/L Potassium 4.0 (3.5-5.1) mmol/L Chloride 112 H (98-110) mmol/L Carbon Dioxide 17 L (21-31) mmol/L BUN 11 (6.0-23.0) mg/dL Creatinine 0.5 L (0.6-1.5) mg/dL Est Cr Clr Drug Dosing 139.49 mL/min Estimated GFR (MDRD) > 60.0 ml/min Glucose 61 (60-110) mg/dL Calcium 8.1 L (8.8-10.8) mg/dL Med Orders - Current: Current Medications Acetaminophen (Tylenol) 650 mg PO Q4H PRN PRN Reason: Pain (Mild 1-3)/fever Last Admin: 10/05/17 18:14 Dose: 650 mg Sodium Chloride (Normal Saline) 1,000 mls @ 125 mls/hr IV ASDIRECTED [facility] Last Admin: 10/06/17 02:38 Dose: 125 mls/hr Piperacillin Sod/Tazobactam (Sod 3.375 gm/ Sodium Chloride) 50 mls @ 100 mls/ hr IV Q8H [facility] Last Admin: 10/06/17 07:47 Dose: 100 mls/hr Ondansetron HCl (Zofran) 4 mg IVPUSH Q4H PRN PRN Reason: Nausea Oxycodone HCl (Oxycodone) 5 mg PO Q4H PRN PRN Reason: Pain Last Admin: 10/06/17 02:54 Dose: 5 mg Discontinued Medications Acetaminophen (Tylenol) 650 mg PO NOW ONE Stop: 10/05/17 10:52 Last Admin: 10/05/17 11:01 Dose: 650 mg Sodium Chloride (Normal Saline) 1,000 mls @ 999 mls/hr IV STAT ONE Stop: 10/05/17 11:35 Last Admin: 10/05/17 10:48 Dose: 999 mls/hr Sodium Chloride (Normal Saline) 1,000 mls @ 999 mls/hr IV STAT ONE Stop: 10/05/17 13:50 Last Admin: 10/05/17 12:57 Dose: 999 mls/hr Piperacillin Sod/Tazobactam (Sod 3.375 gm/ Sodium Chloride) 50 mls @ 100 mls/ hr IV ONETIME ONE Stop: 10/05/17 15:17 Last Admin: 10/05/17 15:12 Dose: 100 mls/hr Sodium Chloride (Normal Saline) 1,000 mls @ 999 mls/hr IV STAT ONE Stop: 10/05/17 15:50 Last Admin: 10/05/17 15:11 Dose: 999 mls/hr Ondansetron HCl (Zofran) 4 mg IVPUSH ONETIME ONE Stop: 10/05/17 10:36 Last Admin: 10/05/17 11:01 Dose: 4 mg Oxycodone HCl (Oxycodone) 5 mg PO Q6H PRN PRN Reason: Pain Last Admin: 10/05/17 22:15 Dose: 5 mg - Exam General: Alert, Oriented Lungs: Normal Respiratory Effort Cardiovascular: Regular Rate GI/Abdominal Exam: Normal Bowel Sounds, Soft, Non-Tender, No Distention, No Mass Skin: Warm, Dry, Intact - Problem List & Annotations (1) Right lower quadrant pain SNOMED Code(s): 235930371 Code(s): R10.31 - RIGHT LOWER QUADRANT PAIN Status: Acute Current Visit: Yes - Problem List Review Problem List Initiated/Reviewed/Updated: Yes - My Orders Last 24 Hours: My Active Orders 10/06/17 00:00 Piperacillin/Tazobactam [Piperacil-Tazobact] 3.375 gm Sodium Chloride 0.9% [ Normal Saline] 50 ml IV Q8H 10/06/17 02:42 oxyCODONE 5 mg PO Q4H PRN 10/06/17 Breakfast Regular Diet [DIET] - Plan Plan:: My suspicion for appendicitis is extremely low. Her pain may have been from a mild viral gastroenteritis or a gynecologic issue. This was compounded by nausea and vomiting that led to dehydration. She never had a leukocytosis or physical exam findings concerning for an acute infectious process in the abdomen. Her pain is now resolved other than some mild crampy pain that she has had for a week or two. She and I discussed that should the pain return she should be seen immediately by her OB or be seen in the ED to have an MRI performed. She is ok to be discharged from my standpoint and doesnt need to follow up with me.
[2017-10-06 10:09] VITALS: BP 115/64
--- NOTE | 2017-10-06 10:09 | PCM.DCSUM1 ---
Discharge Summary - Discharge Data Discharge Date: 10/06/17 Discharge Disposition: Home, Self-Care 01 Condition: Good - Patient Summary/Data Hospital Course: 32 yo female who is 9 weeks who presents with several day history of fevers, right lower quadrant abdominal pain and myalgias. Dr. Joyce and Dr. Padilla were consulted on admission. Patient received IV fluids of normal saline and one dose of zosyn. She was monitored overnight and this morning her symptoms have resolved and she is requesting discharge home. She was discharge home and is to follow up with her PCP and Dr. Padilla. - Patient Instructions Diet: Regular Diet as Tolerated Activity: As Tolerated - Discharge Plan Home Medications: Home Meds RX: Docosahexanoic Acid [ Dha] 200 mg PO DAILY 10/05/17 [History] RX: Pyridoxine HCl [Vitamin B-6] 1 tab PO DAILY 10/05/17 [History] Forms: ED Department Discharge Referrals: PCP,None [Primary Care Provider] - - Patient Data Vitals - Most Recent: Last Vital Signs Temp 37.1 C 10/06/17 08:00 Pulse 68 10/06/17 07:00 Resp 13 10/06/17 09:00 BP 117/70 10/06/17 09:00 Pulse Ox 97 10/06/17 09:00 Weight - Most Recent: 53.07 kg I&O - Last 24 hours: Intake & Output 10/05/17 10/06/17 10/06/17 22:59 06:59 14:59 Intake Total 3050 1794 50 Output Total 1400 Balance 3050 394 50 Lab Results - Last 24 hrs: Laboratory Results - last 24 hr 10/05/17 10/06/17 10/06/17 Range/Units 18:56 06:02 06:02 WBC 8.34 7.15 (4.0-11.0) K/uL RBC 3.73 L 3.62 L (4.30-5.90) M/uL Hgb 11.8 L 11.4 L (12.0-16.0) g/dL Hct 34.5 L 33.8 L (36.0-46.0) % MCV 92.5 93.4 (80.0-98.0) fL MCH 31.6 31.5 (27.0-32.0) pg MCHC 34.2 33.7 (31.0-37.0) g/dL RDW Std Deviation 41.3 41.5 (28.0-62.0) fl RDW Coeff of Sandra 12 12 (11.0-15.0) % Plt Count 185 185 (150-400) K/uL MPV 9.40 9.70 (7.40-12.00) fL Neut % (Auto) 69.0 69.4 (48.0-80.0) % Lymph % (Auto) 21.6 22.1 (16.0-40.0) % [place] % (Auto) 7.9 6.6 (0.0-15.0) % Eos % (Auto) 1.1 1.5 (0.0-7.0) % Baso % (Auto) 0.4 0.4 (0.0-1.5) % Neut # (Auto) 5.8 H 5.0 (1.4-5.7) K/uL Lymph # (Auto) 1.8 1.6 (0.6-2.4) K/uL [place] # (Auto) 0.7 0.5 (0.0-0.8) K/uL Eos # (Auto) 0.1 0.1 (0.0-0.7) K/uL Baso # (Auto) 0.0 0.0 (0.0-0.1) K/uL Nucleated RBC % 0.0 0.0 /100WBC Nucleated RBCs # 0 0 K/uL Sodium 136 (136-146) mmol/L Potassium 4.0 (3.5-5.1) mmol/L Chloride 112 H (98-110) mmol/L Carbon Dioxide 17 L (21-31) mmol/L BUN 11 (6.0-23.0) mg/dL Creatinine 0.5 L (0.6-1.5) mg/dL Est Cr Clr Drug Dosing 139.49 mL/min Estimated GFR (MDRD) > 60.0 ml/min Glucose 61 (60-110) mg/dL Calcium 8.1 L (8.8-10.8) mg/dL Med Orders - Current: Current Medications Acetaminophen (Tylenol) 650 mg PO Q4H PRN PRN Reason: Pain (Mild 1-3)/fever Last Admin: 10/05/17 18:14 Dose: 650 mg Sodium Chloride (Normal Saline) 1,000 mls @ 125 mls/hr IV ASDIRECTED [facility] Last Admin: 10/06/17 02:38 Dose: 125 mls/hr Piperacillin Sod/Tazobactam (Sod 3.375 gm/ Sodium Chloride) 50 mls @ 100 mls/ hr IV Q8H [facility] Last Admin: 10/06/17 07:47 Dose: 100 mls/hr Ondansetron HCl (Zofran) 4 mg IVPUSH Q4H PRN PRN Reason: Nausea Oxycodone HCl (Oxycodone) 5 mg PO Q4H PRN PRN Reason: Pain Last Admin: 10/06/17 02:54 Dose: 5 mg Discontinued Medications Acetaminophen (Tylenol) 650 mg PO NOW ONE Stop: 10/05/17 10:52 Last Admin: 10/05/17 11:01 Dose: 650 mg Sodium Chloride (Normal Saline) 1,000 mls @ 999 mls/hr IV STAT ONE Stop: 10/05/17 11:35 Last Admin: 10/05/17 10:48 Dose: 999 mls/hr Sodium Chloride (Normal Saline) 1,000 mls @ 999 mls/hr IV STAT ONE Stop: 10/05/17 13:50 Last Admin: 10/05/17 12:57 Dose: 999 mls/hr Piperacillin Sod/Tazobactam (Sod 3.375 gm/ Sodium Chloride) 50 mls @ 100 mls/ hr IV ONETIME ONE Stop: 10/05/17 15:17 Last Admin: 10/05/17 15:12 Dose: 100 mls/hr Sodium Chloride (Normal Saline) 1,000 mls @ 999 mls/hr IV STAT ONE Stop: 10/05/17 15:50 Last Admin: 10/05/17 15:11 Dose: 999 mls/hr Ondansetron HCl (Zofran) 4 mg IVPUSH ONETIME ONE Stop: 10/05/17 10:36 Last Admin: 10/05/17 11:01 Dose: 4 mg Oxycodone HCl (Oxycodone) 5 mg PO Q6H PRN PRN Reason: Pain Last Admin: 10/05/17 22:15 Dose: 5 mg *Q Meaningful Use (DIS) - VTE *Q VTE Criteria *Q: - Stroke *Q Stroke Criteria *Q: - AMI *Q AMI Criteria *Q:
--- NOTE | 2017-10-07 11:29 | US ---
EXAM DATE: 10/05/17 PATIENT'S AGE: 32 Patient: TRUONG NIX Facility: [place], [place] Site . Site : 1985 Study: US Abdomen [id number]/2017 12:23:52 PM Ordering Physician: Doctor Brice Final Report: INDICATION: RLQ PAIN ECTOPIC VS APPY INDICATION: Right lower quadrant abdominal pain. Patient is 9 weeks FINDINGS: Ultrasound of the right lower quadrant has been performed. The appendix is not identified. There are multiple bowel loops noted. No significant fluid is seen. IMPRESSION: The appendix is not identified in the right lower quadrant. No abnormal fluid collections are seen. Dictated by Will Bender MD @ 10/05/2017 12:54:04 PM Dictated by: Will Bender MD @ 10/05/2017 12:54:11 (Electronic Signature) Report Signed by Proxy. [email or web address]
--- NOTE | 2017-10-07 11:30 | US ---
EXAM DATE: 10/05/17 PATIENT'S AGE: 32 Patient: TRUONG NIX Facility: [place], [place] Site . Site : 1985 Study: US OB Pelvis [id number]/2017 12:24:36 PM Ordering Physician: Doctor Brice Final Report: INDICATION: RLQ PAIN 9 WKS BY DATES INDICATION: Patient with right-sided pelvic pain and 9 weeks . FINDINGS: There is an early single living intrauterine identified. The average crown-rump length is 2 cm corresponding 8 weeks +4 days and an estimated date of confinement of 05/11/2018. Cardiac activity is identified with a heart rate calculated at 173 beats per minute. Yolk sac is noted. There is a very small linear hypoechoic density associated with the gestational sac consistent with a very small subchorionic bleed. The bilateral ovaries are within normal limits. There is a small cyst within the right ovary. No significant free fluid is seen. No adnexal masses are seen. IMPRESSION: There is an early single living intrauterine identified. There is a 2 cm crown-rump length corresponding to 8 weeks +4 days and an estimated date of confinement of 05/11/2018. This is consistent with the patient`s clinical dates. Yolk sac is noted. Cardiac activity is noted. There is a very linear fluid collection consistent with a small subchorionic bleed. There is a small cyst within the right ovary. No adnexal masses seen bilaterally. No significant free fluid is seen. Recommend followup ultrasound as progresses. Dictated by Will Bender MD @ 10/05/2017 12:58:30 PM Dictated by: Will Bender MD @ 10/05/2017 12:58:38 (Electronic Signature) Report Signed by Proxy. LUCILA
== END 2017-10-06 10:35 | disposition home or self-care (01) ==
LOC: MW.ED 10:13 → MW.ICU 15:43
PROVIDERS: ADMIT Internal Medicine; ATTEND Internal Medicine
DX: O99.89 Other specified diseases and conditions complicating pregnancy, childbirth and the puerperium (principal); R10.31 Right lower quadrant pain; R50.9 Fever, unspecified; M79.1 Myalgia; R09.81 Nasal congestion; O21.9 Vomiting of pregnancy, unspecified; O99.331 Smoking (tobacco) complicating pregnancy, first trimester; Z3A.09 9 weeks gestation of pregnancy; Z79.899 Other long term (current) drug therapy
CPT/HCPCS: 36415; 76705; 76817; 80048; 80053; 81001; 83605; 84702; 85025; 87040; 87804; 96361; 96365; 96375; 99285; A9270; J2405; J2543; J7040; J7050; 96366; G0378